=== PATIENT | female | born 1960 | race Caucasian/White ===

== ENCOUNTER 2016-12-20 09:55 | Emergency (ER) | payer OTHER ==
[~2016-12-20] VITALS: Ht 167.6 cm; Wt 72.6 kg
[2016-12-20 10:07] VITALS: BP 174/102
[2016-12-20] MEDS ORDERED: DEXAMETHASONE SOD PHOS 4 MG/ML VIAL IM ONE (10:15)
[2016-12-20] MEDS ORDERED: KETOROLAC TROMETHAMINE 60 MG/2 ML INJ. IM ONE (10:15)
[2016-12-20] MEDS ORDERED: IBUP-1060 PO (10:15)
[2016-12-20] MEDS ORDERED: PRED50TA PO (10:15)
--- NOTE | 2016-12-20 10:15 | PHYS DOC ---
Adult General Chief Complaint Chief Complaint: UPPER EXTREMITY PAIN HPI HPI Patient is a 56 year old F who presents with sharp shooting pains down her left upper extremity. Patient states since Saturday she started developing sharp shooting pains down her left arm as she was typing. Patient states the pain starts in her neck and radiates down her left arm. Patient denies any chest pain or shortness of breath. Patient denies any injury to her neck. Patient states she was driving today and started having these sharp pains down her left arm therefore came the emergency room. Patient denies any fevers. Patient denies any headache or neck stiffness. Patient has no other complaints. Review of Systems Review of Systems GEN: Denies fevers, chills, sweats HEENT: Denies blurred vision, sore throat CV: Denies chest pain RESP: Denies shortness of air, cough GI: Denies n/v/d NEURO: Denies confusion, dizziness MSK: Left arm pain Current Medications Current Medications Current Medications Medications (Trade) Dose Ordered Sig/Daina Start Time Stop Time Status Last Admin Dose Admin Dexamethasone Sodium Phosphate (Decadron) 10 mg 1X ONCE 12/20/16 10:15 12/20/16 10:16 DC 12/20/16 10:14 10 MG Ketorolac Tromethamine (Toradol Im) 60 mg 1X ONCE 12/20/16 10:15 12/20/16 10:16 DC 12/20/16 10:13 60 MG Allergies Allergies Allergies Coded Allergies Type Severity Reaction Last Updated Verified aspirin Adverse Reaction Mild NAUSEA 12/20/16 Yes naproxen Adverse Reaction Mild NAUSEA 12/20/16 Yes Physical Exam Physical Exam GEN.: No apparent distress. Alert and oriented. HEENT: Head is normocephalic, atraumatic NECK: Supple. No midline tenderness, no tenderness palpation over the sternal cleidomastoid's muscles LUNGS: CTAB. HEART: RRR, S1, S2 present. Peripheral pulses intact ABDOMEN: Soft, nontender. Positive bowel sounds. EXTREMITIES: Without any cyanosis. No tenderness to palpation over the left upper extremity, good range of motion of the wrist, elbow, shoulder on the left with a good radial pulse and capillary refill less than 2 seconds NEUROLOGIC: Normal speech, normal tone, when having the patient return her head to the left shoulder and apply and axial compression to the top of the head the patient has radiculopathy pain described as sharp shooting down her left upper extremity PSYCHIATRIC: Normal affect, normal mood. SKIN: No ulcerations Current Patient Data Vital Signs Vital Signs Date Time Temp Pulse Resp B/P (MAP) Pulse Ox O2 Delivery O2 Flow Rate FiO2 12/20/16 10:07 98.2 101 20 98 Room Air 98.2 EKG EKG [] Radiology/Procedures Radiology/Procedures [] Course & Med Decision Making Course & Med Decision Making Pertinent Labs and Imaging studies reviewed. (See chart for details) ED course: Patient was seen and examined in emergency room based on physical exam findings patient was given 10 mg of Decadron and 60 mg total 1024: Patient was reevaluated after medication was administered and she was feeling better. Discussed diagnosis with the patient and need to follow-up with PCP to have further evaluation done and possible MRI. Patient is comfortable going home. MDM: After reviewing the chart, CC/HPI/PMH, physical exam, I do not believe the patient has emergent medical condition warranting further workup and/or admission at this time. Based on physical exam findings and the lack of recent trauma I do not believe the patient needs imaging of her head or neck at this time. Based on the fact that the symptoms are reproducible by having the patient turn her head to the left and apply axial load supports a diagnosis of radicular nerve pain and I recommended she follow up with her PCP for further evaluation and management of this pain along with a possible MRI of the head and neck. Patient be treated with steroids and anti-inflammatories. Patient is stable for discharge. Additional verbal discharge instructions were provided to the patient and that if symptoms get worse or any new symptoms arise that are worrisome to the patient she is to return to the emergency room immediately [] Dragon Disclaimer Dragon Disclaimer This electronic medical record was generated, in whole or in part, using a voice recognition dictation system. Departure Departure Impression: Primary Impression: Radiculopathy affecting upper extremity Disposition: 01 HOME, SELF-CARE Condition: IMPROVED Patient Instructions: Cervical Radiculopathy, [id number] Additional Instructions: Please follow up with your family physician in the next one to 2 days and return if symptoms increase Scripts Prednisone (PREDNISONE) 50 Mg Tablet 1 TAB PO DAILY, #5 TAB Prov: JANELLE ENRIQUEZ DO 12/20/16 Ibuprofen (IBUPROFEN) 800 Mg Tablet 800 MG PO PRN Q6HRS Y for INFLAMMATION for 10 Days, #40 TAB Prov: JANELLE ENRIQUEZ DO 12/20/16 JANELLE ENRIQUEZ DO Dec 20, 2016 10:15
== END 2016-12-20 10:34 | disposition home or self-care (01) ==
LOC: ER 09:55
DX: M54.12 Radiculopathy, cervical region (principal); Z88.6 Allergy status to analgesic agent
CPT/HCPCS: 96372; 99284; J1100; J1885